=== PATIENT | female | born 1985 | race Caucasian/White ===

== ENCOUNTER 2016-10-25 22:30 | Emergency (ER) | payer SELFPAY ==
[~2016-10-25] VITALS: Ht 167.6 cm; Wt 55.0 kg
[~2016-10-25 22:30] MED LIST: MACR100C PO
[2016-10-25 22:33] VITALS: BP 126/73; PULSE 106; RESP 16; TEMP 97.7; O2SAT 100
== END 2016-10-25 23:54 | disposition left against medical advice (07) ==
LOC: NED 22:30
DX: R10.9 Unspecified abdominal pain (principal)
CPT/HCPCS: 99281